=== PATIENT | male | born 1980 | race Two or more races ===

== ENCOUNTER 2018-09-04 07:18 | Emergency (ER) | payer SELFPAY ==
[~2018-09-04] VITALS: Ht 175.3 cm; Wt 89.4 kg
[2018-09-04 07:21] VITALS: BP 141/99; Ht 175.3 cm; Wt 89.4 kg
== END 2018-09-04 07:57 | disposition home or self-care (01) ==
LOC: ED 07:18
DX: H93.12 Tinnitus, left ear (principal); H92.02 Otalgia, left ear